=== PATIENT | female | born 1965 | race Two or more races ===

== ENCOUNTER 2024-10-20 13:45 | Emergency (ER) | payer OTHER ==
[~2024-10-20] VITALS: Ht 167.6 cm; Wt 56.7 kg
== END 2024-10-20 18:14 | disposition home or self-care (01) ==
LOC: ER 14:17
DX: S42.212A Unspecified displaced fracture of surgical neck of left humerus, initial encounter for closed fracture (principal); W19.XXXA Unspecified fall, initial encounter; Y93.89 Activity, other specified; Y92.098 Other place in other non-institutional residence as the place of occurrence of the external cause; Y99.8 Other external cause status; M25.512 Pain in left shoulder; Z88.6 Allergy status to analgesic agent